=== PATIENT | female | born 1945 | race Caucasian/White ===

== ENCOUNTER 2017-02-21 10:12 | Day surgery (SDC) | payer MEDICAID, OTHER ==
[~2017-02-21] VITALS: Ht 152.4 cm; Wt 70.0 kg
[2017-02-21] VITALS (19 sets, daily range): BP systolic 98–152; BP diastolic 54–80; PULSE 64–82; RESP 10–20; Ht 152.4 cm; Wt 70.0 kg
[~2017-02-21 10:12] MED LIST: ACET500C5 PO; GLYCOPYRROLATE 0.4 MG INJ ONE; LOSA50TA6 PO; METH-480 PO; NEOSTIGMINE 3 MG/3 ML SYRINGE ONE; OSLT75C PO
[2017-02-21] MEDS ORDERED: BENA20TA48 PO (10:45)
[2017-02-21] MEDS ORDERED: ASPI-664 PO (10:46)
[2017-02-21] MEDS ORDERED: ATOR10TA65 PO (10:46)
[2017-02-21] MEDS ORDERED: OMEG1CAP90 PO (10:47)
[2017-02-21] MEDS ORDERED: SOD CHLORIDE 0.9% 1,000 ML IV ONE (12:30)
[2017-02-21] MEDS ORDERED: CLINDAMYCIN 600 MG/D5W (PMX) 50 ML IVPB ONE (12:30)
[2017-02-21] MEDS ORDERED: BUPIVACAINE 0.25% (MPF) 10 ML 10 ML VIAL ONE ×2 (17:00→17:28)
[2017-02-21] MEDS ORDERED: SUCCINYLCHOLINE CHLORIDE 100 MG/5 ML SYG IV ONE (17:13)
[2017-02-21] MEDS ORDERED: ROCURONIUM 50 MG INJ ONE (17:13)
[2017-02-21] MEDS ORDERED: LIDOCAINE 2% (SDV) 5 ML INJ ONE (17:13)
[2017-02-21] MEDS ORDERED: PROPOFOL 20 ML ONE (17:13)
[2017-02-21] MEDS ORDERED: FENTAnyl 50 MCG/ML VIAL ONE (17:13)
[2017-02-21] MEDS ORDERED: ONDANSETRON 4 MG INJ ONE (17:29)
[2017-02-21] MEDS ORDERED: EPHEDrine SULFATE 50 MG/5 ML SYG ONE (17:29)
[2017-02-21] MEDS ORDERED: DEXAMETHASONE 4 MG/ML 1 ML INJ ONE (17:29)
[2017-02-21] MEDS ORDERED: HYDROmorphONE (0.2 MG/ML) 10ML SYG IV PRN (18:00)
[2017-02-21] MEDS ORDERED: MEPERIDINE 25 MG INJ IV PRN (18:00)
[2017-02-21] MEDS ORDERED: DIPHENHYDRAMINE 50 MG INJ IV PRN (18:00)
[2017-02-21] MEDS ORDERED: ONDANSETRON 4 MG INJ IV PRN (18:00)
[2017-02-21] MEDS ORDERED: FENTAnyl 50 MCG/ML VIAL IV PRN (18:00)
[2017-02-21] MEDS ORDERED: PROCHLORPERAZINE 10 MG INJ IV PRN (18:00)
[2017-02-21] MEDS ORDERED: HYDROCODONE/APAP (5/325) TAB PO ONE (18:00)
[2017-02-21] MEDS ORDERED: OXYCODONE/ACETAMINOPHEN (5/325) TAB PO PRN (18:00)
[2017-02-21] MEDS ORDERED: LABETALOL HCL 20MG INJ ONE (18:00)
--- NOTE | 2017-02-21 18:00 | OPR ---
Date/Time of Note Date/Time of Note DATE: 02/21/17 TIME: 17:59 Operative Report Procedure Date: Feb 21, 2017 Preoperative Diagnosis symptomatic gallstones Postoperative Diagnosis same Operation Performed lap patricia Surgeon: Javi RAMÍREZ Specimens gallbladder Javi RAMÍREZ Feb 21, 2017 18:00
[2017-02-21] MEDS ORDERED: KETOROLAC 30 MG INJ ONE (18:01)
--- NOTE | 2017-02-21 18:22 | OPR ---
DATE OF OPERATION: 02/21/2017 INDICATION: This is a 71-year-old female with symptomatic gallstones. She requests surgical excisi on of her gallbladder. Risks, alternatives, benefits, and personnel were discussed with the patient . Patient expressed understanding and consents to operation. PREOPERATIVE DIAGNOSIS: Symptomatic gallstones. POSTOPERATIVE DIAGNOSIS: Symptomatic gallstones. OPERATION: Laparoscopic cholecystectomy. SURGEON: Harley Winslow MD TRANSPORTATION ESCORT: Cassi Baer MD SPECIMENS: Gallbladder. COMPLICATIONS: None. ANESTHESIA: General. PROCEDURE: The patient was taken to the OR and prepped and draped in the usual sterile fashion. Rivera rgical timeout was performed. IV antibiotics were given. Infraumbilical transverse incision is mad e with a 15 blade. Dissection cautery was carried down to the fascia which was divided with curved Hughes scissors. An 0 Vicryl U-stitch was placed into the fascia. Balloon Hieu trocar was introduc ed. Pneumoperitoneum established. Midepigastric 12 mm optical trocar and right upper quadrant and right upper flank 5 mm optical trocars are placed under direct visualization. Upon initial inspecti on, there were some adhesions to the gallbladder. The cystic artery was identified. Three clips we re placed approximately, 1 clip distally and the cystic artery was divided. The cystic duct was riki ntified. The critical view was established. The cystic duct was divided using a 35 mm [place] vasc ular load stapler. The staple line was reinforced with clips. Gallbladder was taken off the gallbl adder bed. There was good hemostasis. Gallbladder was retrieved using EndoCatch bag. Ports were r emoved under direct visualization. An 0 Vicryl U-stitch was tied down. Skin was closed using stapl es. Local anesthesia injected. Dry dressings were applied. Dictated By: HARLEY HOOKS/DIPTI Conf#: [id number] DID#: [id number]
== END 2017-02-21 20:00 | disposition home or self-care (01) ==
LOC: SDS 10:12
PROVIDERS: ATTEND Surgery
DX: K80.10 Calculus of gallbladder with chronic cholecystitis without obstruction (principal); I10 Essential (primary) hypertension; E78.5 Hyperlipidemia, unspecified; F41.9 Anxiety disorder, unspecified
CPT/HCPCS: 47562; 88304; J1100; J1885; J2175; J2405; J2710; J3010; J7999